=== PATIENT | female | born 1990 ===

== ENCOUNTER 2018-07-11 03:56 | Emergency (ER) | payer SELFPAY ==
[2018-07-11 04:05] VITALS: RESP 16; TEMP 98.2
--- NOTE | 2018-07-11 04:05 | C.PDOC ---
History Of Present Illness Patient is , recently found out she is , presents complaining of lower abdominal cramping and vaginal bleeding. Denies fever, chills, nausea, or vomiting. Time Seen by Provider: 07/11/18 04:02 Chief Complaint (Nursing): Abdominal Pain History Per: Patient History/Exam Limitations: no limitations Onset/Duration Of Symptoms: Hrs Current Symptoms Are (Timing): Still Present Severity: Moderate Pain Scale Rating Of: 4 Location Of Pain/Discomfort: Suprapubic Quality Of Discomfort: Cramping Associated Symptoms: denies: Fever, Chills, Nausea, Vomiting Alleviating Factors: None Recent travel outside of the [place]: No Abnormal Vaginal Bleeding: Yes Past Medical History Reviewed: Historical Data, Nursing Documentation, Vital Signs Family History: States: No Known Family Hx Review Of Systems Constitutional: Negative for: Fever, Chills Cardiovascular: Negative for: Chest Pain, Palpitations Respiratory: Negative for: Cough, Shortness of Breath Gastrointestinal: Positive for: Abdominal Pain. Negative for: Nausea, Vomiting Genitourinary: Positive for: Vaginal Bleeding Neurological: Negative for: Weakness, Numbness Physical Exam - Physical Exam Appears: Non-toxic Skin: Warm, Dry Head: Normacephalic Oral Mucosa: Moist Chest: Symmetrical, No Tenderness Cardiovascular: Rhythm Regular Respiratory: No Rales, No Rhonchi, No Wheezing Gastrointestinal/Abdominal: Soft, Tenderness (Suprapubic), No Guarding, No Rebound Back: No CVA Tenderness Neurological/Psych: Oriented x3 ED Course And Treatment - Laboratory Results Result Diagrams: 07/11/18 04:51 07/11/18 04:51 Progress Note: Blood work and urinalysis ordered. IV fluids administered. Disposition Counseled Patient/Family Regarding: Studies Performed, Diagnosis - Disposition Disposition Time: 04:05 Condition: FAIR Forms: [employer] ([place]wana) - Clinical Impression Clinical Impression: Threatened - Scribe Statement The provider has reviewed the documentation as recorded by the Scribe Kendrick Thomas All medical record entries made by the Scribe were at my direction and personally dictated by me. I have reviewed the chart and agree that the record accurately reflects my personal performance of the history, physical exam, medical decision making, and the department course for this patient. I have also personally directed, reviewed, and agree with the discharge instructions and disposition. Physician Patient Turnover Patient Signed Over To: Dayanna Hughes Handoff Comments: pending US and disposition
[2018-07-11] MEDS ORDERED: Sodium Chloride 0.9% 1,000 ML IV ONE (04:11)
[2018-07-11 04:26] LABS: HCG,QUALITATIVE URINE POSITIVE (NEGATIVE)
[2018-07-11] MEDS ORDERED: Sodium Chloride 0.9% 1,000 ML ONE (04:36)
[2018-07-11 04:55] LABS: SQUAMOUS EPITHIAL 4 /hpf (0-5); URINE BILIRUBIN NEGATIVE (NEGATIVE); URINE BLOOD 3+ (NEGATIVE); URINE CLARITY Hazy (Clear); URINE COLOR Yellow (YELLOW); URINE GLUCOSE (UA) NORMAL (Normal); URINE LEUKOCYTE ESTERASE TRACE Leu/uL (Negative); URINE PROTEIN NEGATIVE (NEGATIVE); URINE UROBILINOGEN NORMAL mg/dL (0.2-1.0)
[2018-07-11 04:57] LABS: BASO % 0.5 % (0.0-2.0); EOS # 0.3 K/uL (0.0-0.7); EOS % 3.1 % (0.0-4.0); HEMOGLOBIN 13.9 g/dL (11.0-16.0); LYMPH # 2.8 K/uL (1.0-4.3); LYMPH % 31.8 % (20.0-40.0); MEAN CELL VOLUME 92.1 fL (81.0-99.0); MEAN CORPUSCULAR HEMOGLOBIN 31.5 pg (27.0-31.0); MEAN CORPUSCULAR HGB CONC 34.2 g/dL (33.0-37.0); MEAN PLATELET VOLUME 8.4 fL (7.2-11.7); MONO # 0.8 K/uL (0.0-0.8); MONO % 9.6 % (0.0-10.0); NEUT # 4.8 K/uL (1.8-7.0); NRBC % 0.1 % (0.0-2.0); RBC 4.41 Mil/uL (3.80-5.20); RED CELL DISTRIBUTION WIDTH 13.3 % (11.5-14.5); WHITE BLOOD COUNT 8.7 K/uL (4.8-10.8)
[2018-07-11 05:20] LABS: ALB/GLOB RATIO 1.4 (1.0-2.1); ALBUMIN 4.6 g/dL (3.5-5.0); ALT/SGPT 34 U/L (9-52); AST/SGOT 31 U/L (14-36); BLOOD UREA NITROGEN 13 mg/dL (7-17); CALCIUM 9.3 mg/dl (8.6-10.4); GFR NON-AFRICAN AMERICAN > 60
--- NOTE | 2018-07-11 09:43 | US ---
Date of service: 07/11/2018 HISTORY: , vag bleed, hcg 650 COMPARISON: None available. TECHNIQUE: Pelvic ultrasound examination. History of . FINDINGS: UTERUS: Measures 8.1 x 4.2 x 5.5 cm. Normal in size and appearance. No fibroid or other mass lesion seen. ENDOMETRIUM: Measures 18 mm in diameter. Unremarkable. CERVIX: No cervical abnormality identified. RIGHT OVARY: Measures cm. No solid mass. Normal flow. LEFT OVARY: Measures cm. No solid mass. Normal flow. FREE FLUID: No significant free fluid noted. OTHER FINDINGS: None. IMPRESSION: No intrauterine gestation identified. Thickened endometrium. Cannot exclude ectopic gestation on the basis of this examination. Follow-up with serial beta HCG evaluation.
[2018-07-11 09:51] VITALS: BP 126/84; PULSE 87; O2SAT 100
== END 2018-07-11 09:53 | disposition home or self-care (01) ==
LOC: C.ER 03:56
DX: O20.0 Threatened abortion (principal); Z3A.01 Less than 8 weeks gestation of pregnancy
CPT/HCPCS: 76830; 76856; 80053; 81001; 84702; 84703; 85025; 86850; 86900; 99284; J7030

== ENCOUNTER 2018-07-13 11:32 | Emergency (ER) | payer SELFPAY ==
[2018-07-13 11:40] VITALS: BP 132/85; PULSE 78; RESP 17; TEMP 99.1; O2SAT 99
--- NOTE | 2018-07-13 11:51 | C.PDOC ---
Time Seen by Provider: 07/13/18 11:49 Chief Complaint (Nursing): Female Genitourinary Past Medical History Vital Signs: Last Vital Signs Temp 99.1 F 07/13/18 11:37 Pulse 78 07/13/18 11:37 Resp 17 07/13/18 11:37 BP 132/85 07/13/18 11:37 Pulse Ox 99 07/13/18 11:37 Primary Care Provider: FAMILY PROVIDER,NO - Social History Hx Alcohol Use: Yes Hx Substance Use: No - Immunization History Hx Tetanus Toxoid Vaccination: No Hx Influenza Vaccination: No Hx Pneumococcal Vaccination: No ED Course And Treatment O2 Sat by Pulse Oximetry: 99 Disposition - Disposition Forms: [email or web address] (Albanian)
--- NOTE | 2018-07-13 11:56 | C.PDOC ---
History Of Present Illness Patient is a 28yo female, who states she is about 3 weeks by her LMP. A2. States she was evaluated in this ED 2 days ago with complaints of pelvic cramping and vaginal bleeding. States she had labwork performed and an US. States US did not show and her "hormone levels were low." Patient states she was advised to return back to the ED in 2 days to have repeat hormone levels checked. Explains that the pelvic cramping has subsided and now she has light spotting. She went to her private [facility] after her initial ED visit who recommended that same as ED clinician. Patient denies any weakness, fevers, abdominal pain, urinary symptoms, nausea, or vomiting. No other complaints at this time. Time Seen by Provider: 07/13/18 11:49 Chief Complaint (Nursing): Female Genitourinary Past Medical History Reviewed: Historical Data, Nursing Documentation, Vital Signs Vital Signs: Last Vital Signs Temp 99.1 F 07/13/18 11:37 Pulse 78 07/13/18 11:37 Resp 17 07/13/18 11:37 BP 132/85 07/13/18 11:37 Pulse Ox 99 07/13/18 11:37 Primary Care Provider: FAMILY PROVIDER,NO - Medical History PMH: No Chronic Diseases Family History: States: No Known Family Hx - Social History Hx Tobacco Use: No Hx Alcohol Use: Yes Hx Substance Use: No - Immunization History Hx Tetanus Toxoid Vaccination: No Hx Influenza Vaccination: No Hx Pneumococcal Vaccination: No Review Of Systems Except As Marked, All Systems Reviewed And Found Negative. Physical Exam - Physical Exam Appears: Non-toxic, No Acute Distress Skin: Normal Color Head: Normacephalic Eye(s): bilateral: EOMI Nose: Normal Oral Mucosa: Moist Neck: Normal, Normal ROM, Supple Chest: Symmetrical Cardiovascular: Rhythm Regular Respiratory: Normal Breath Sounds Gastrointestinal/Abdominal: Normal Exam, Soft, No Tenderness, No Distention, No Rebound Extremity: Normal ROM, No Tenderness ED Course And Treatment O2 Sat by Pulse Oximetry: 99 Medical Decision Making Medical Decision Making: Repeat quant HCG ordered. Records reviewed from patient's last visit. 07/13/18 1234 HCG from 07/11/18 was 645.09 now 974.56. Slight improvement. Patient 28yo female with early versus threatened , 2 days ago had pelvic pain and vaginal bleeding which is now improved, No longer has pain and now has light spotting. HCG slightly improved. Threatened instructions provided to patient. Advised to follow-up closely with her [facility] and to have recheck of her HCG levels in 2 days. States she has follow-up appointment with her doctor early this coming week. Advised to return back to the ED with any pelvic pain or increased vaginal bleeding, weakness or fevers. Disposition Counseled Patient/Family Regarding: Studies Performed, Need For Followup - Disposition Referrals: FAMILY PROVIDER,NO [Family Provider] - Bentley Wilburn MD [Non-Staff] - Disposition: HOME/ ROUTINE Disposition Time: 12:44 Condition: GOOD Additional Instructions: Follow-up with your PMD and [facility]. Return with any returning pelvic pain, vaginal bleeding. You will need to have your HCG levels rechecked and trended. Instructions: Threatened Miscarriage Forms: General Discharge Instructions, Work/School/Gym Excuse, [facility] (Kittitian) Print Language: INDONESIAN - Clinical Impression Clinical Impression: Threatened
== END 2018-07-13 12:55 | disposition home or self-care (01) ==
LOC: C.ER 11:32
DX: O20.0 Threatened abortion (principal); Z3A.01 Less than 8 weeks gestation of pregnancy

== ENCOUNTER 2018-07-17 16:13 | Emergency (ER) | payer SELFPAY | END 2018-07-17 18:19 | disposition home or self-care (01) | LOC: C.ER 16:13 ==